=== PATIENT | male | born 1955 | race Hispanic/Latino ===

== ENCOUNTER → 2022-09-25 | Outpatient (CLI) | payer BC ==
[~2022-09-25] MED LIST: CREON12 PO; ESOM40CA PO; GUAI-776 PO; HYDR-3420 PO; METF-444 PO; METO25TA6 PO; OMEP20TA20 PO; SITA100T12 PO
[2022-09-25 08:34] LABS: INR 1.11 (0.85-1.15)
[2022-09-25 08:36] LABS: PARTIAL THROMBOPLASTIN TIME 25.3 SEC (26.3-35.5)
== END | disposition home or self-care (01) ==
LOC: RAH 07:36
PROVIDERS: ATTEND Otolaryngology Plastic Surgery within the Head & Neck
DX: E04.1 Nontoxic single thyroid nodule (principal); Z79.01 Long term (current) use of anticoagulants; Z79.899 Other long term (current) drug therapy
CPT/HCPCS: 10005; 36415; 76942; 85610; 85730